=== PATIENT | male | born 1985 | race African-American/Black ===

== ENCOUNTER 2021-04-23 19:42 | Emergency (ER) | payer OTHER ==
[2021-04-23 19:52] VITALS: BMI 26.3
[2021-04-23] MEDS ORDERED: SODIUM CHLORIDE 0.9% 500 ML INFUS.BAG IV ONE (21:21)
[2021-04-23] MEDS ORDERED: ACETAMINOPHEN 1000 MG/100 ML VIAL (NON FORMULARY) IVPB ONE (21:21)
[2021-04-23] MEDS ORDERED: ACETAMINOPHEN INJECTION 100 ML IVPB ONE (21:52)
[2021-04-23 21:58] LABS: EOS % 2.2 % (0-4.5); HEMATOCRIT 43.4 % (35.4-49); HEMOGLOBIN 14.3 GM/dL (11.7-16.9); LYMPH % 27.7 % (8-40); MCH 30.5 pg (25.7-33.7); MEAN CELL VOLUME 92.4 fl (80-96); MEAN PLT VOLUME 7.1 fl (7.5-11.1); MONO % 5.7 % (3.8-10.2); NEUT % 63.4 % (42.8-82.8); PLATELET COUNT 290 10^3/uL (134-434); WHITE BLOOD COUNT 7.2 K/mm3 (4.0-10.0)
[2021-04-23 22:05] LABS: INR 0.85 (0.83-1.09); PROTHROMBIN TIME (PATIENT) 10.5 SEC (9.7-13.0)
[2021-04-23 22:08] LABS: ACTIVATED PTT 30.7 SECONDS (25.2-36.5)
[2021-04-23 22:17] LABS: CALCIUM 9.1 mg/dL (8.5-10.1)
[2021-04-23 22:18] LABS: ALBUMIN 4.1 g/dl (3.4-5.0)
[2021-04-23 22:22] LABS: BILIRUBIN,TOTAL 0.2 mg/dL (0.2-1)
[2021-04-23 22:23] LABS: TOT PROT 7.8 g/dl (6.4-8.2)
[2021-04-24 00:34] LABS: URINE APPEARANCE CLEAR; URINE BILIRUBIN NEGATIVE (NEGATIVE); URINE COLOR YELLOW; URINE GLUCOSE (UA) NEGATIVE (NEGATIVE); URINE KETONE NEGATIVE (NEGATIVE); URINE LEUK ESTERASE NEGATIVE (NEGATIVE); URINE NITRITE NEGATIVE (NEGATIVE); URINE PROTEIN NEGATIVE (NEGATIVE)
[2021-04-24 00:56] VITALS: BP 128/72; PULSE 74; TEMP 98.1
== END 2021-04-24 00:59 | disposition home or self-care (01) ==
LOC: JER 19:42
PROC: 3E0333Z Introduction of Anti-inflammatory into Peripheral Vein, Percutaneous Approach (ICD-10-PCS; principal; 2021-04-23)
DX: S06.0X9A Concussion with loss of consciousness of unspecified duration, initial encounter (principal)
CPT/HCPCS: 36415; 70450-TC; 71260-TC; 72125-TC; 73030-TC-LT-FY; 73070-TC-LT-FY; 73090-TC-RT-FY; 73110-TC-LT-FY; 73130-TC-LT-FY; 73562-TC-LT-FY; 73562-TC-RT-FY; 74177-TC; 80053; 81003; 85025; 85610; 85730; 93005; 93010; 99285-25; J0131; Q9967